=== PATIENT | female | born 1950 | race Caucasian/White ===

== ENCOUNTER → 2016-12-27 | Outpatient (CLI) | payer OTHER ==
[2016-12-27 14:53] LABS: BASOPHILS # (AUTO) 0.06 10*3/UL; BASOPHILS % (AUTO) 0.9 % (0-1); HEMATOCRIT 37.1 % (37.0-47.0); HEMOGLOBIN 11.7 g/dL (12.0-16.0); IMM GRAN % (AUTO) 0.3 % (0-5); IMM GRAN# (AUTO) 0.02 10*3/UL; LYMPHOCYTES # (AUTO) 2.32 10*3/uL; LYMPHOCYTES % (AUTO) 33.1 % (10-50); MEAN CORPUSCULAR HEMOGLOBIN 26.8 PG (27-31); MEAN CORPUSCULAR HGB CONC 31.5 g/dL (33-37); MEAN PLATELET VOLUME 10.3 FL (7.4-12.2); MONOCYTES # (AUTO) 0.61 10*3/UL (0.3-0.8); MONOCYTES % (AUTO) 8.7 % (5-15); NEUTROPHILS # (AUTO) 3.92 10*3/UL; RDW COEFFICIENT OF VARIATION 13.5 % (11.5-14.5); RED BLOOD COUNT 4.36 10^6/uL (4.20-5.40)
[2016-12-27 14:54] LABS: PLATELET MORPHOLOGY COMMENT NORMAL MORPHOLOGY (NORM)
[2016-12-27 15:04] LABS: HEMOGLOBIN A1C 6.61 % (4.2-6.0); MEAN BLOOD GLUCOSE (CALC) 134.113 mg/dL
[2016-12-27 15:13] LABS: ASPARTATE AMINO TRANSFERASE 16 IU/L (8-39); BILIRUBIN,TOTAL 0.4 mg/dL (0.3-1.2); BLOOD UREA NITROGEN 19 mg/dL (7-22); BUN/CREATININE RATIO 21.11 (6-20); CALCIUM 9.4 mg/dL (8.7-10.7); CHLORIDE 102 meq/L (98-112); CREATININE 0.9 mg/dL (0.50-1.20); EST GLOMERULAR FILTRATION > 60 (>60 ml/min/1.73m(2)); GLUCOSE 84 mg/dL (78-110); HDL CHOLESTEROL 38 mg/dL (40-150); POTASSIUM 3.8 meq/L (3.8-5.2); SODIUM 141 meq/L (135-145); TOTAL PROTEIN 6.8 g/dL (6.1-8.0); TRIGLYCERIDES 167 mg/dL (44-200)
[2016-12-31 13:50] LABS: HCV AB SCREEN Negative (Negative)
== END ==
LOC: LAB 11:50
PROVIDERS: ATTEND Physician Assistant Medical
DX: E11.9 Type 2 diabetes mellitus without complications (principal); D51.3 Other dietary vitamin B12 deficiency anemia; R10.84 Generalized abdominal pain; Z11.59 Encounter for screening for other viral diseases; F17.210 Nicotine dependence, cigarettes, uncomplicated
CPT/HCPCS: 80053; 80061; 83036; 84443; 85025; 86803

== ENCOUNTER → 2017-02-20 | Outpatient (CLI) | payer OTHER | LOC: MMPC 10:00 | PROVIDERS: ATTEND Podiatrist Foot & Ankle Surgery | DX: M20.41 Other hammer toe(s) (acquired), right foot (principal); E11.9 Type 2 diabetes mellitus without complications; E66.9 Obesity, unspecified; G14 Postpolio syndrome; M79.7 Fibromyalgia; M17.0 Bilateral primary osteoarthritis of knee | CPT/HCPCS: 99212; G0463 ==

== ENCOUNTER → 2017-05-15 | Outpatient (CLI) | payer OTHER ==
[2017-05-15 14:59] LABS: BLOOD UREA NITROGEN 20 mg/dL (7-22); BUN/CREATININE RATIO 28.57 (6-20); EST GLOMERULAR FILTRATION > 60 (>60 ml/min/1.73m(2)); SERUM ALBUMIN 3.7 g/dL (3.5-4.8)
[2017-05-15 15:07] LABS: BASOPHILS # (AUTO) 0.05 10*3/UL; BASOPHILS % (AUTO) 0.8 % (0-1); EOSINOPHILS % (AUTO) 1.7 % (0-8); HEMATOCRIT 35.9 % (37.0-47.0); HEMOGLOBIN 11.1 g/dL (12.0-16.0); LYMPHOCYTES # (AUTO) 1.74 10*3/uL; MEAN CORPUSCULAR HEMOGLOBIN 25.8 PG (27-31); MEAN CORPUSCULAR HGB CONC 30.9 g/dL (33-37); MEAN CORPUSCULAR VOLUME 83.3 FL (81-99); MEAN PLATELET VOLUME 10.8 FL (7.4-12.2); MONOCYTES # (AUTO) 0.54 10*3/UL (0.3-0.8); NEUTROPHILS # (AUTO) 3.58 10*3/UL; NEUTROPHILS % (AUTO) 59.4 % (50-80); RED BLOOD COUNT 4.31 10^6/uL (4.20-5.40)
[2017-05-15 15:18] LABS: PLATELET MORPHOLOGY COMMENT NORMAL MORPHOLOGY (NORM); RBC MORPHOLOGY COMMENT NORMAL MORPHOLOGY (NORM); WBC MORPHOLOGY COMMENT NORMAL MORPHOLOGY (NORM)
[2017-05-15 17:36] LABS: FERRITIN 6.93 ng/mL (12.00-336.70)
== END ==
LOC: LAB 10:28
PROVIDERS: ATTEND Physician Assistant Medical
DX: D50.8 Other iron deficiency anemias (principal); G14 Postpolio syndrome; R06.02 Shortness of breath; D51.9 Vitamin B12 deficiency anemia, unspecified; F17.200 Nicotine dependence, unspecified, uncomplicated; F32.9 Major depressive disorder, single episode, unspecified
CPT/HCPCS: 80053; 82607; 82728; 84443; 85025

== ENCOUNTER → 2017-06-06 | Outpatient (CLI) | payer OTHER ==
--- NOTE | 2017-06-06 17:59 | DI ---
BILATERAL SCREENING FULL FIELD DIGITAL MAMMOGRAMS, 06/06/2017 1:11 PM: Clinical History: Screening. Previous right benign breast biopsy. The patient indicated she had chemo therapy for a liver problem although did not clarify the completely to the technologist. 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 Previous Exam: None at this facility. The patient indicated that [facility] in [place], [place]. We have requested the p rior study. A supplemental report will be issued upon receipt of that prior exam. Routine mediolateral oblique and craniocaudal views of each breast are obtained. Breast tissue densit y is rated as being composed almost entirely of fatty tissue. There are no masses. There are no abnor mal calcifications. Skin contours, nipples, and lower axillary regions are normal. These mammograms w ere evaluated and reviewed with CAD software. Follow Up: 1 - 2 years. BIRADS: 1. Negative. Assessment: Negative.
== END ==
LOC: MAMMO 13:03
PROVIDERS: ATTEND Physician Assistant Medical
DX: Z12.31 Encounter for screening mammogram for malignant neoplasm of breast (principal)
CPT/HCPCS: G0202